=== PATIENT | female | born 2000 | race Caucasian/White ===

== ENCOUNTER 2021-08-14 11:58 | Inpatient (IN) | payer BC, SELFPAY ==
[~2021-08-14] VITALS: Ht 154.9 cm; Wt 78.0 kg
[2021-08-14] MEDS ORDERED: LR 1,000 ML IV ONE (13:30)
[2021-08-14] MEDS ORDERED: NALBUPHINE HCL 10 MG/ML AMP IVP PRN (13:30)
[2021-08-14] MEDS ORDERED: TERBUTALINE SULFATE 1 MG/ML VIAL SUBCUT ONE (13:30)
[2021-08-14] MEDS ORDERED: LR 1,000 ML IV SCH (13:30)
[2021-08-14 13:51] LABS: BASOPHILS % (AUTO) 0.1 % (0.0-2.0); EOSINOPHILS % (AUTO) 0.4 % (0.0-4.0); HEMATOCRIT 37.6 % (36-48); HEMOGLOBIN 12.8 g/dL (12.0-16.0); LYMPHOCYTES # (AUTO) 1.6 K/uL (1.0-5.5); MEAN CORPUSCULAR HEMOGLOBIN 30 pg (27-31); MEAN CORPUSCULAR HGB CONC 34 % (32-36); MEAN CORPUSCULAR VOLUME 88 fL (79.0-98.0); MONOCYTES # (AUTO) 0.3 K/uL (0.0-1.0); MONOCYTES % (AUTO) 3.4 % (1.7-9.3); NEUTROPHILS # (AUTO) 7.5 K/uL (1.8-7.7); NEUTROPHILS % (AUTO) 79.1 % (40.0-70.0); PLATELET COUNT (AUTO) 136 K/uL (130-430); RED CELL DISTRIBUTION WIDTH 14.9 % (9.0-15.0); WHITE BLOOD COUNT (AUTO) 9.4 K/uL (4.8-10.8)
[2021-08-14] MEDS ORDERED: DINOPROSTONE 10 MG SUPP VG ONE (14:15)
[2021-08-14] MEDS ORDERED: MINERAL OIL 30 ML UDC PO ONE (14:18)
[2021-08-14] MEDS ORDERED: LIDOCAINE PF 1% 30ML(POUR BTL) INJ ONE (14:18)
[2021-08-14 17:34] VITALS: BP_SYST 114
[2021-08-14] MEDS ORDERED: TEMAZEPAM 15 MG CAPSULE PO PRN (22:00)
[2021-08-15] MEDS ORDERED: DINOPROSTONE 10 MG SUPP VG ONE (12:15)
[2021-08-15] MEDS ORDERED: LIDOCAINE JELLY 5 ML TUBE MM ONE (12:15)
[2021-08-16] MEDS ORDERED: LIDOCAINE JELLY 5 ML TUBE MM ONE (09:45)
[2021-08-16] MEDS ORDERED: OXYTOCIN/0.9 % SODIUM CHLORIDE 1,000 ML IV SCH (13:45)
[2021-08-16] MEDS ORDERED: OXYTOCIN/0.9 % SODIUM CHLORIDE 1,000 ML IV ONE (15:33)
[2021-08-17] MEDS ORDERED: METHYLERGONOVINE MALEATE 0.2 MG TABLET PO PRN (07:45)
[2021-08-17] MEDS ORDERED: HYDROcodone/ACETAMIN 5-325 MG TAB (NORCO/ VICODIN) PO PRN (07:45)
[2021-08-17] MEDS ORDERED: WITCH HAZEL LEAF 1 MED.PAD MED.PAD TP PRN (07:45)
[2021-08-17] MEDS ORDERED: ANUSOL 1 EA SUPP.RECT (PREPARATION H) RC PRN (07:45)
[2021-08-17] MEDS ORDERED: OXYCODONE/ACETAMINOPHEN 5-325 TABLET PO PRN (07:45)
[2021-08-17] MEDS ORDERED: LANOLIN 7 GM OINT. TP PRN (07:45)
[2021-08-17] MEDS ORDERED: NALOXONE HCL 0.4 MG/ML AMP (NARCAN) IVP PRN (07:45)
[2021-08-17] MEDS ORDERED: HYDROCORTISONE 0.5% CREAM 28.4 GM CREAM.GM. TP PRN (07:45)
[2021-08-17] MEDS ORDERED: MEASLES,MUMPS&RUBELLA VACC/PF 12500 UNIT/0.5 ML VIAL SUBQ PRN (07:45)
[2021-08-17] MEDS ORDERED: OXYTOCIN/0.9 % SODIUM CHLORIDE 1,000 ML IV ONE ×2 (07:45→08:43)
[2021-08-17] MEDS ORDERED: OXYTOCIN/0.9 % SODIUM CHLORIDE 1,000 ML IV SCH (07:45)
[2021-08-17] MEDS ORDERED: DERMOPLAST SPRAY TP PRN (07:45)
[2021-08-17] MEDS ORDERED: DIPH-TET-PERTUS Vaccine 0.5 ML VIAL (ADACEL) I.M. PRN (07:45)
[2021-08-17] MEDS ORDERED: IBUPROFEN 600 MG TABLET PO ONE (08:30)
[2021-08-17] MEDS ORDERED: METHYLERGONOVINE MALEATE 0.2 MG/ML AMP ONE (08:42)
[2021-08-17] MEDS ORDERED: METHYLERGONOVINE MALEATE 0.2 MG TABLET ONE (09:19)
[2021-08-17] MEDS: IBUPROFEN 600 MG TABLET PO SCH ×2 (10:34→17:06)
[2021-08-17] MEDS: DOCUSATE SODIUM 100 MG CAPSULE PO SCH (10:34)
[2021-08-17] MEDS: METHYLERGONOVINE MALEATE 0.2 MG TABLET PO SCH ×2 (12:27→17:05)
[2021-08-17 15:36] LABS: BASOPHILS % (AUTO) 0.1 % (0.0-2.0); EOSINOPHILS % (AUTO) 0.1 % (0.0-4.0); HEMATOCRIT 31.2 % (36-48); HEMOGLOBIN 10.5 g/dL (12.0-16.0); LYMPHOCYTES # (AUTO) 1.5 K/uL (1.0-5.5); LYMPHOCYTES % (AUTO) 8.5 % (20.5-51.5); MEAN CORPUSCULAR HEMOGLOBIN 30 pg (27-31); MEAN CORPUSCULAR HGB CONC 34 % (32-36); MEAN CORPUSCULAR VOLUME 88 fL (79.0-98.0); MONOCYTES # (AUTO) 0.8 K/uL (0.0-1.0); MONOCYTES % (AUTO) 4.8 % (1.7-9.3); NEUTROPHILS # (AUTO) 14.9 K/uL (1.8-7.7); NEUTROPHILS % (AUTO) 86.5 % (40.0-70.0); PLATELET COUNT (AUTO) 123 K/uL (130-430); RED BLOOD CELL COUNT(AUTO) 3.53 MIL/uL (4.2-6.2); RED CELL DISTRIBUTION WIDTH 15.4 % (9.0-15.0); WHITE BLOOD COUNT (AUTO) 17.3 K/uL (4.8-10.8)
[2021-08-17] MEDS ORDERED: SENNOSIDES/DOCUSATE SODIUM 1 TAB TABLET(SENOKOT-S) PO SCH (21:00)
[2021-08-17] MEDS ORDERED: TEMAZEPAM 15 MG CAPSULE PO PRN (21:00)
[2021-08-17 22:06] LABS: FTA-Ab (T PALLIDUM) Non Reactive (Non Reactive)
[2021-08-18] MEDS: IBUPROFEN 600 MG TABLET PO SCH ×5 (00:07→18:03)
[2021-08-18 06:50] LABS: BASOPHILS % (AUTO) 0.2 % (0.0-2.0); EOSINOPHILS # (AUTO) 0.1 K/uL (0.0-0.4); EOSINOPHILS % (AUTO) 0.8 % (0.0-4.0); HEMATOCRIT 26.6 % (36-48); HEMOGLOBIN 8.9 g/dL (12.0-16.0); LYMPHOCYTES # (AUTO) 2.7 K/uL (1.0-5.5); LYMPHOCYTES % (AUTO) 24.7 % (20.5-51.5); MEAN CORPUSCULAR HEMOGLOBIN 30 pg (27-31); MEAN CORPUSCULAR HGB CONC 33 % (32-36); MEAN CORPUSCULAR VOLUME 90 fL (79.0-98.0); MONOCYTES # (AUTO) 0.6 K/uL (0.0-1.0); MONOCYTES % (AUTO) 5.4 % (1.7-9.3); NEUTROPHILS # (AUTO) 7.5 K/uL (1.8-7.7); NEUTROPHILS % (AUTO) 68.9 % (40.0-70.0); PLATELET COUNT (AUTO) 101 K/uL (130-430); RED BLOOD CELL COUNT(AUTO) 2.96 MIL/uL (4.2-6.2); RED CELL DISTRIBUTION WIDTH 15.1 % (9.0-15.0); WHITE BLOOD COUNT (AUTO) 10.9 K/uL (4.8-10.8)
[2021-08-18] MEDS: DOCUSATE SODIUM 100 MG CAPSULE PO SCH (09:29)
[2021-08-18] MEDS: METHYLERGONOVINE MALEATE 0.2 MG TABLET PO SCH ×2 (09:30→15:44)
[2021-08-18] MEDS: OXYCODONE/ACETAMINOPHEN 5-325 TABLET PO PRN ×2 (11:54→16:43)
== END 2021-08-18 21:58 | disposition home or self-care (01) | DRG 806 ==
LOC: SPU 11:58 → OBSVTOIN 11:58
PROVIDERS: ADMIT Specialist; ATTEND Specialist
PROC: 3E0P7VZ Introduction of Hormone into Female Reproductive, Via Natural or Artificial Opening (ICD-10-PCS; 2021-08-14)
PROC: 10E0XZZ Delivery of Products of Conception, External Approach (ICD-10-PCS; principal; 2021-08-17)
PROC: 0W8NXZZ Division of Female Perineum, External Approach (ICD-10-PCS; 2021-08-17)
DX: O41.03X0 Oligohydramnios, third trimester, not applicable or unspecified (principal); D62 Acute posthemorrhagic anemia; Z37.0 Single live birth; Z3A.38 38 weeks gestation of pregnancy; Z20.822 Contact with and (suspected) exposure to COVID-19
CPT/HCPCS: 36415; 81002; 85025; 86592; 86780; 86886; 86900; 86901; J2001; J2210; J2300; J2590